=== PATIENT | female | born 1965 | race Caucasian/White ===

== ENCOUNTER 2019-02-04 00:12 | Emergency (ER) | payer BC, SELFPAY ==
[2019-02-04 00:26] VITALS: BP 160/90; PULSE 84
[2019-02-04] MEDS ORDERED: LORazepam 2 MG/ML SDV IVPUSH STA (03:30)
[2019-02-04] MEDS ORDERED: Sodium Chloride 0.9% 1,000 ML ONE (03:37)
--- NOTE | 2019-02-04 03:40 | EDM.PDOC ---
ED HPI GENERAL MEDICAL PROBLEM - General Chief Complaint: Cardiovascular Problem Stated Complaint: NUMB ARMS THROAT FEELS LIKE IT IS CLOSING Time Seen by Provider: 02/04/19 03:18 Source of Information: Reports: Patient, Family (, Son) History Limitations: Reports: No Limitations - History of Present Illness INITIAL COMMENTS - FREE TEXT/NARRATIVE: Mrs. Interiano is a pleasant 53-year-old woman with a past medical history significant for SVT, cervical disc disease, and a small left cerebral aneurysm, who states that she developed the sensation of her heart racing around 05:00 this morning. She then developed a dry mouth and throat tightness around 15:00 this afternoon, and lightheadedness, bilateral hand and bilateral lower extremity tingling and electricity sensation around 23:30 to midnight tonight. She states that she feels dyspneic, and that she cannot walk due to the sensation in her lower extremities. She denies having chest discomfort or abdominal pain. She states that she has had dizziness in the past when she had SVT, but no prior similar constellation of symptoms. Both the patient and her emphasized that the patient is under significant increased stress with decreased sleep for the past week. Due to a severe pediatric trauma, it took me some time to get in to see the patient, but during that time, I was notified numerous times that the patient was yelling and screaming that she thought her throat was closing, and that she thought she was having an allergic reaction. The patient reported to her nurse that she had taken meclizine and Benadryl prior to coming to the ED. The nurse reported to me, however, that the patient's throat was wide open, and that her oxygen saturation was 100% on room air. The patient was notified countless times of the trauma situation, to no avail. When I did evaluate the patient, obtaining a history from her was quite difficult, as the patient appeared to be extremely anxious, and was reluctant to answer questions, preferring to defer answers to her . The patient does not have a PCP. Her Maintenance Of Way Superintendent is Robina Jones. - Related Data Allergies Allergy/AdvReac Type Severity Reaction Status Date / Time No Known Allergies Allergy Verified 01/24/18 16:11 Home Meds: Home Meds Acyclovir 800 mg PO BID PRN 01/24/18 [History] Albuterol [Proventil HFA] 1 puff INH Q4H PRN 01/24/18 [History] Aspirin [Ecotrin EC] 81 mg PO DAILY 01/24/18 [History] Cetirizine [ZyrTEC] 10 mg PO DAILY 01/24/18 [History] Fluticasone/Vilanterol [Breo Ellipta 100-25 MCG Inhalation Kit] 1 puff INH DAILY 01/24/18 [History] Pseudoephedrine HCl [Sudafed] 30 mg PO ASDIRECTED PRN 01/24/18 [History] Thyroid,Pork [Nature-Throid] 0.5 tab PO DAILY 01/24/18 [History] Past Medical History HEENT History: Reports: Allergic Rhinitis Cardiovascular History: Reports: Aneurysm (left cerebral), Arrhythmia (SVT) Gastrointestinal History: Reports: Colon Polyp, PUD Genitourinary History: Reports: Urinary Incontinence (stress incontinence) Musculoskeletal History: Reports: Arthritis, Neck Pain, Chronic (cervical disc disease) Endocrine/Metabolic History: Reports: Hypothyroidism Oncologic (Cancer) History: Reports: Basal Cell Carcinoma (right bartholomew, excised) - Past Surgical History HEENT Surgical History: Reports: LASIK, Oral Surgery (wisdom teeth extraction) GI Surgical History: Reports: Colonoscopy (x 3 or 4), EGD (x 1) Female Surgical History: Reports: D&C (x 1), Tubal Ligation Musculoskeletal Surgical History: Reports: Arthroscopic Knee (right) Oncologic Surgical History: Reports: Other (See Below) (Excision of BCC off right bartholomew) Social & Family History - Tobacco Use Smoking Status *Q: Former Smoker Years of Tobacco use: 15 Packs/Tins Daily: 1 Month/Year Tobacco Last Used: Quit 2000 - Caffeine Use Caffeine Use: Reports: Coffee - Alcohol Use Alcohol Use History: Yes Alcohol Use Frequency: Rarely - Recreational Drug Use Recreational Drug Use: No - Living Situation & Occupation Living situation: Reports: , with Spouse, with Family (Son) Occupation: Employed (Paraprofessional) ED ROS GENERAL - Review of Systems Review Of Systems: ROS reveals no pertinent complaints other than HPI. ED EXAM, GENERAL - Physical Exam Exam: See Below Exam Limited By: No Limitations General Appearance: Anxious, Thin Eye Exam: Bilateral Eye: EOMI, Normal Inspection, PERRL Ears: Normal External Exam, Normal Canal, Hearing Grossly Normal, Normal TMs Nose: Normal Inspection, Normal Mucosa, No Blood Throat/Mouth: Normal Inspection, Normal Lips, Normal Teeth, Normal Gums, Normal Oropharynx, Normal Voice, No Airway Compromise Head: Atraumatic, Normocephalic Neck: Normal Inspection, Supple, Non-Tender, Full Range of Motion. No: Lymphadenopathy (L), Lymphadenopathy (R) Respiratory/Chest: No Respiratory Distress, Lungs Clear, Normal Breath Sounds, No Accessory Muscle Use Cardiovascular: Normal Peripheral Pulses, Regular Rate, Rhythm, No Gallop, No JVD, No Murmur, No Rub Peripheral Pulses: 4+: Radial (L), Radial (R) GI/Abdominal: Normal Bowel Sounds, Soft, Non-Tender, No Organomegaly, No Distention, No Abnormal Bruit, No Mass (Female) Exam: Deferred Rectal (Female) Exam: Deferred Back Exam: Normal Inspection, Full Range of Motion, NT Extremities: Normal Inspection, Normal Range of Motion, No Pedal Edema, Normal Capillary Refill Neurological: Alert, Oriented, CN II-XII Intact, Normal Cognition, No Motor/ Sensory Deficits Psychiatric: Anxious Skin Exam: Warm, Dry, Intact, Normal Color, No Rash EKG INTERPRETATION EKG Date: 02/04/19 Time: 00:22 Rhythm: NSR (with frequent PACs and compensatory pauses) Rate (Beats/Min): 93 [place]: Normal P-Wave: Present QRS: Normal ST-T: Normal QT: Normal Comparison: NA - No Prior EKG Course - Vital Signs Last Recorded V/S: Last Vital Signs Temp 36.6 C 02/04/19 00:23 Pulse 84 02/04/19 00:23 Resp 16 02/04/19 00:23 BP 160/90 H 02/04/19 00:23 Pulse Ox 100 02/04/19 00:23 Orthostatic Blood Pressure [ 122/88 Standing] Orthostatic Blood Pressure [ 129/79 Supine] - Orders/Labs/Meds Orders: Active Orders 24 hr Category Date Time Status Orthostatic Vital Signs [RC] STAT Care 02/04/19 03:21 Active Labs: Laboratory Tests 02/04/19 02/04/19 02/04/19 Range/Units 00:36 00:36 00:36 WBC 10.62 H (3.98-10.04) K/mm3 RBC 4.68 (3.98-5.22) M/mm3 Hgb 14.2 (11.2-15.7) gm/dl Hct 40.6 (34.1-44.9) % MCV 86.8 D (79.4-94.8) fl MCH 30.3 (25.6-32.2) pg MCHC 35.0 (32.2-35.5) g/dl RDW Std Deviation 41.0 (36.4-46.3) fL Plt Count 307 (182-369) K/mm3 MPV 10.7 (9.4-12.3) fl Neutrophils % (Manual) 54 (40-60) % Band Neutrophils % 3 (0-10) % Lymphocytes % (Manual) 30 (20-40) % Atypical Lymphs % 0 % Monocytes % (Manual) 13 H (2-10) % Eosinophils % (Manual) 0 L (0.7-5.8) % Basophils % (Manual) 0 L (0.1-1.2) Platelet Estimate Adequate Plt Morphology Comment Normal RBC Morph Comment Normal D-Dimer, Quantitative 0.25 (0.19-0.50) mg/L Puncture Site ABG pH (7.35-7.45) ABG pCO2 (35.0-45.0) mmHg ABG pO2 (80.0-100.0) mmHg ABG HCO3 (22.0-26.0) meq/L ABG O2 Saturation (96.0-97.0) % ABG Base Excess (-2-2.0) A-a Gradient mmHg O2 Delivery Device FiO2 (21.00-100.00) % Sodium 134 L (136-145) mEq/L Potassium 2.9 L D (3.5-5.1) mEq/L Chloride 97 L (98-107) mEq/L Carbon Dioxide 22 (21-32) mEq/L Anion Gap 17.9 H (5-15) BUN 14 (7-18) mg/dL Creatinine 0.8 (0.55-1.02) mg/dL Est Cr Clr Drug Dosing 3.13 mL/min Estimated GFR (MDRD) > 60 (>60) mL/min BUN/Creatinine Ratio 17.5 (14-18) Glucose 124 H (74-106) mg/dL Calcium 10.2 H (8.5-10.1) mg/dL Magnesium 1.8 (1.8-2.4) mg/dl Total Bilirubin 0.6 (0.2-1.0) mg/dL AST 31 (15-37) U/L ALT 33 (14-59) U/L Alkaline Phosphatase 81 (46-116) U/L Troponin I < 0.017 (0.00-0.056) ng/mL NT-Pro-B Natriuret Pep (0-125) pg/mL Total Protein 8.1 (6.4-8.2) g/dl Albumin 4.5 (3.4-5.0) g/dl Globulin 3.6 gm/dL Albumin/Globulin Ratio 1.3 (1-2) TSH 3rd Generation 4.342 H (0.358-3.74) uIU/mL Urine Color (Yellow) Urine Appearance (Clear) Urine pH (5.0-8.0) Ur Specific [place] (1.005-1.030) Urine Protein (Negative) Urine Glucose (UA) (Negative) Urine Ketones (Negative) Urine Occult Blood (Negative) Urine Nitrite (Negative) Urine Bilirubin (Negative) Urine Urobilinogen (0.2-1.0) Ur Leukocyte Esterase (Negative) Urine RBC (0-5) /hpf Urine WBC (0-5) /hpf Ur Squamous Epith Cells (0-5) /hpf Urine Bacteria (FEW) /hpf Urine Mucus (FEW) /hpf 02/04/19 02/04/19 02/04/19 Range/Units 01:50 03:45 04:05 WBC (3.98-10.04) K/mm3 RBC (3.98-5.22) M/mm3 Hgb (11.2-15.7) gm/dl Hct (34.1-44.9) % MCV (79.4-94.8) fl MCH (25.6-32.2) pg MCHC (32.2-35.5) g/dl RDW Std Deviation (36.4-46.3) fL Plt Count (182-369) K/mm3 MPV (9.4-12.3) fl Neutrophils % (Manual) (40-60) % Band Neutrophils % (0-10) % Lymphocytes % (Manual) (20-40) % Atypical Lymphs % % Monocytes % (Manual) (2-10) % Eosinophils % (Manual) (0.7-5.8) % Basophils % (Manual) (0.1-1.2) Platelet Estimate Plt Morphology Comment RBC Morph Comment D-Dimer, Quantitative (0.19-0.50) mg/L Puncture Site Lt brachial ABG pH 7.49 H (7.35-7.45) ABG pCO2 26.9 L (35.0-45.0) mmHg ABG pO2 110.0 H (80.0-100.0) mmHg ABG HCO3 20.1 L (22.0-26.0) meq/L ABG O2 Saturation 98.4 H (96.0-97.0) % ABG Base Excess -1.7 (-2-2.0) A-a Gradient 6 mmHg O2 Delivery Device Room air FiO2 21.00 (21.00-100.00) % Sodium (136-145) mEq/L Potassium (3.5-5.1) mEq/L Chloride (98-107) mEq/L Carbon Dioxide (21-32) mEq/L Anion Gap (5-15) BUN (7-18) mg/dL Creatinine (0.55-1.02) mg/dL Est Cr Clr Drug Dosing mL/min Estimated GFR (MDRD) (>60) mL/min BUN/Creatinine Ratio (14-18) Glucose (74-106) mg/dL Calcium (8.5-10.1) mg/dL Magnesium (1.8-2.4) mg/dl Total Bilirubin (0.2-1.0) mg/dL AST (15-37) U/L ALT (14-59) U/L Alkaline Phosphatase (46-116) U/L Troponin I (0.00-0.056) ng/mL NT-Pro-B Natriuret Pep 275 H (0-125) pg/mL Total Protein (6.4-8.2) g/dl Albumin (3.4-5.0) g/dl Globulin gm/dL Albumin/Globulin Ratio (1-2) TSH 3rd Generation (0.358-3.74) uIU/mL Urine Color Light yellow (Yellow) Urine Appearance Clear (Clear) Urine pH 8.0 (5.0-8.0) Ur Specific [place] 1.015 (1.005-1.030) Urine Protein Negative (Negative) Urine Glucose (UA) Negative (Negative) Urine Ketones Trace H (Negative) Urine Occult Blood Negative (Negative) Urine Nitrite Negative (Negative) Urine Bilirubin Negative (Negative) Urine Urobilinogen 0.2 (0.2-1.0) Ur Leukocyte Esterase Negative (Negative) Urine RBC Not seen (0-5) /hpf Urine WBC Not seen (0-5) /hpf Ur Squamous Epith Cells 0-5 (0-5) /hpf Urine Bacteria Rare (FEW) /hpf Urine Mucus Rare (FEW) /hpf Meds: Medications Discontinued Medications Generic Name Dose Route Start Last Admin Trade Name Jack PRN Reason Stop Dose Admin Sodium Chloride 1,000 mls @ 150 mls/hr 02/04/19 03:45 02/04/19 05:00 Normal Saline IV 999 mls/hr ASDIRECTED AMANDA Infusion Sodium Chloride Confirm 02/04/19 03:37 02/04/19 03:41 Normal Saline Administered 02/04/19 03:38 Not Given Dose 1,000 mls @ as directed .ROUTE .STK-MED ONE Lorazepam 1 mg 02/04/19 03:30 02/04/19 03:40 Ativan IVPUSH 02/04/19 03:31 1 mg ONETIME STA Administration Potassium Chloride 40 meq 02/04/19 04:08 02/04/19 04:16 Klor-Con M20 PO 02/04/19 04:09 40 meq ONETIME ONE Administration - Re-Assessments/Exams Free Text/Narrative Re-Assessment/Exam: 02/04/19 03:36 The patient appears to be suffering from anxiety and hyperventilation - a panic attack. I have ordered an ABG to confirm hyperventilation, along with a workup to rule out physiologic causes for hyperventilation other than anxiety. Once the ABG has been drawn, the patient will receive Ativan and IV fluid. 02/04/19 04:11 2-view chest radiograph reviewed. The cardiac silhouette is within normal limits. No pulmonary vascular congestion. No pleural effusions. No focal infiltrate. No pneumothorax. There is mild hyperinflation and bilateral diaphragmatic flattening, consistent with COPD. Formal read per the Radiologist pending. The patient's potassium returned depressed at 2.9. I ordered 40 mEq of oral potassium. 02/04/19 05:14 The patient's CBC is remarkable for a WBC count elevated at 10.62, but with only 3% bandemia, and is otherwise unremarkable. Her CMP is remarkable for a sodium slightly depressed at 234, potassium depressed at 2.9, chloride depressed at 97, and blood glucose mildly elevated at 124. The remainder of her CMP is unremarkable. Her magnesium level is within normal limits at 1.8. Her troponin is undetectably low. Her D-dimer is within normal limits at 0.25. Her BNP is slightly elevated at 275. Her TSH is elevated at 4.342. Her ABG represents an acute respiratory alkalosis. Her urinalysis is unremarkable. The patient is not quite orthostatic, but is close, therefore I have asked the patient's nurse to bolus the remaining IV fluid. 02/04/19 05:34 Test results discussed with the patient and her son. The patient's has got home. Following IV Ativan, the patient now looks and feels substantially better - a different person. I explained to the patient that we suspected that she was hyperventilating based on her symptoms and an oxygen saturation of 100%, but that the ABG confirmed it. I explained that the other tests that I ordered were to evaluate for physiologic causes of hyperventilation, such as DKA, uremia, hypocalcemia, hypoglycemia, hyperthyroidism, liver failure, severe anemia, sepsis, acute coronary event, pneumothorax, pneumonia, dysrhythmia, pulmonary embolus, and CHF. I explained that all of these were negative, therefore, by a process of elimination, the patient's hyperventilation is most likely do to anxiety. The patient agreed that that was the most likely cause. I explained that since this was a one-time event, no treatment is necessary, and that I would not be prescribing her any medications, however, if her symptoms persist or recur, then she should seek long-term treatment. For that, I will refer her to Dr. Rod. Departure - Departure Time of Disposition: 05:37 Disposition: Home, Self-Care 01 Condition: Good Clinical Impression: Hyperventilation syndrome Instructions: Hyperventilation Referrals: Pricila Rod MD [Physician] - Forms: ED Department Discharge Additional Instructions: You were seen in the emergency room for palpitations, upper and lower extremity hand tingling and electricity sensation, lightheadedness, a dry mouth, throat tightness, shortness of breath, and inability to walk. Workup in the ER included blood work, an arterial blood gas, a urinalysis, a chest x-ray, positional blood pressure checks, and an ECG. Your ABG confirmed that your hyperventilating. You were also found to have low potassium, likely as a result of hyperventilation, and your TSH was high, consistent with hypothyroidism. The remainder of your workup was unremarkable. As explained, hyperventilation is usually caused by anxiety, although it can be caused by a variety of medical conditions including diabetic ketoacidosis, uremia, hypocalcemia, hypoglycemia, hyperthyroidism, liver failure, severe anemia, sepsis, and acute coronary event, a pneumothorax, pneumonia, dysrhythmias, pulmonary embolus, or congestive heart failure. All of those were ruled out. By a process of elimination, your hyperventilation was most likely do to anxiety. Since this is a new event for you, no treatment is necessary, however, if your symptoms persist or recur, we recommend that you follow-up with Dr. Pricila Rod as a PCP to discuss long-term treatment options. If any other problems, please do not hesitate to return to the ER. - My Orders Last 24 Hours: My Active Orders 02/04/19 03:21 Orthostatic Vital Signs [RC] STAT - Assessment/Plan Last 24 Hours: My Active Orders 02/04/19 03:21 Orthostatic Vital Signs [RC] STAT
[2019-02-04] MEDS ORDERED: Sodium Chloride 0.9% 1,000 ML IV SCH (03:45)
[2019-02-04] MEDS ORDERED: Potassium Chloride 20 MEQ Tab.ER PO ONE (04:08)
--- NOTE | 2019-02-04 06:53 | CR ---
Chest: Two views of the chest are obtained. Comparison: No prior chest imaging. Heart size and mediastinum are normal. Lung markings slightly increased. Lungs otherwise are clear. Bony structures appear within normal limits for the patient's age. Impression: 1. Increased lung markings. Uncertain if this is chronic or represents acute bronchitis as no previous study is available to determine stability. 2. No additional abnormality is appreciated on two-view chest x-ray. Diagnostic code #3
== END 2019-02-04 06:20 | disposition home or self-care (01) ==
LOC: JD.ED 00:12
DX: F45.8 Other somatoform disorders (principal); E03.9 Hypothyroidism, unspecified; Z79.890 Hormone replacement therapy; Z85.89 Personal history of malignant neoplasm of other organs and systems; Z87.891 Personal history of nicotine dependence
CPT/HCPCS: 36415; 36600; 71046; 80053; 81001; 82803; 83735; 83880; 84443; 84484; 85007; 85027; 85379; 93005; 96361; 96374; 99285; A9270; J2060; J7040

== ENCOUNTER 2020-08-31 17:18 | Emergency (ER) | payer BC ==
[2020-08-31 17:29] VITALS: BP 118/84; PULSE 101
[2020-08-31] MEDS ORDERED: Lidocaine 1% 10 ML MDV INJECT ONE (17:54)
[2020-08-31] MEDS ORDERED: Diphtheria,Pertussis(Acell),Tetanus Vaccine 0.5 ML Syringe IM ONE (17:54)
--- NOTE | 2020-08-31 18:48 | EDM.PDOC ---
ED HPI GENERAL MEDICAL PROBLEM - General Chief Complaint: Laceration Stated Complaint: LT ARM LAC Time Seen by Provider: 08/31/20 17:41 Source of Information: Reports: Patient, RN Notes Reviewed History Limitations: Reports: No Limitations - History of Present Illness INITIAL COMMENTS - FREE TEXT/NARRATIVE: Patient is a 54-year-old female presenting to the emergency department with complaints of laceration to her left inner elbow. She reports she was standing on a lawn chair when it fell. She hit her arm on the opposite arm of the lawn chair. Reports some mild pain in her elbow. Last tetanus vaccination was approximately 10 years ago. Left Arm Pain Score (Numeric/FACES): 4 - Related Data Allergies Allergy/AdvReac Type Severity Reaction Status Date / Time No Known Allergies Allergy Verified 08/31/20 17:29 Home Meds: Home Meds Albuterol [Proventil HFA] 1 puff INH Q4H PRN 01/24/18 [History] Aspirin [Ecotrin EC] 81 mg PO DAILY 01/24/18 [History] Cetirizine [ZyrTEC] 10 mg PO DAILY 01/24/18 [History] Thyroid,Pork [Nature-Throid] 0.5 tab PO DAILY 01/24/18 [History] Past Medical History HEENT History: Reports: Allergic Rhinitis Cardiovascular History: Reports: Aneurysm, Arrhythmia Respiratory History: Reports: Asthma, Other (See Below) Other Respiratory History: bronchitits, cough, asthma Gastrointestinal History: Reports: Colon Polyp, PUD Other Gastrointestinal History: gastric ulcer Genitourinary History: Reports: Urinary Incontinence Other Genitourinary History: UTI, vaginal discharge, dysuria, yeast infection [employer]OC[employer] History: Reports: None Musculoskeletal History: Reports: Arthritis, Neck Pain, Chronic Other Musculoskeletal History: tenosynovitis Neurological History: Reports: Migraines, Other (See Below) Other Neuro History: anterior cerebral aneursym, dizziness Psychiatric History: Reports: None Endocrine/Metabolic History: Reports: Hypothyroidism Hematologic History: Reports: None Immunologic History: Reports: None Oncologic (Cancer) History: Reports: Basal Cell Carcinoma Dermatologic History: Reports: Other (See Below) Other Dermatologic History: cold sores - Past Surgical History HEENT Surgical History: Reports: LASIK, Oral Surgery GI Surgical History: Reports: Colonoscopy, EGD Female Surgical History: Reports: D&C, Tubal Ligation Musculoskeletal Surgical History: Reports: Arthroscopic Knee Oncologic Surgical History: Reports: Other (See Below) Social & Family History - Tobacco Use Tobacco Use Status *Q: Never Tobacco User Second Hand Smoke Exposure: No - Caffeine Use Caffeine Use: Reports: Coffee - Recreational Drug Use Recreational Drug Use: No - Living Situation & Occupation Living situation: Reports: , with Spouse, with Family (Son) Occupation: Employed (Paraprofessional) ED ROS GENERAL - Review of Systems Review Of Systems: Comprehensive ROS is negative, except as noted in HPI. ED EXAM, SKIN/RASH Exam: See Below Exam Limited By: No Limitations General Appearance: Alert, WD/WN, No Apparent Distress Respiratory/Chest: No Respiratory Distress, Lungs Clear, Normal Breath Sounds, No Accessory Muscle Use, Chest Non-Tender Cardiovascular: Normal Peripheral Pulses, Regular Rate, Rhythm, No Edema, No Gallop, No JVD, No Murmur, No Rub Extremities: Other (3.5 cm gaping laceration with a 2 cm superficial area distally. Total laceration length 5.5 cm. No ecchymosis or obvious deformity of the elbow. Patient does have full range of motion however states it is slightly uncomfortable.) Neurological: Alert, Oriented, CN II-XII Intact, Normal Cognition, Normal Gait, Normal Reflexes, No Motor/Sensory Deficits Psychiatric: Normal Affect, Normal Mood ED SKIN PROCEDURES - Laceration/Wound Repair Left Medial Elbow Appearance: Subcutaneous, Other (3.5 cm gaping subcutaneous laceration with 2 cm superficial laceration. The total laceration length is 5.5 cm) Distal NVT: Neuro & Vascular Intact Anesthetic Type: Local Local Anesthesia - Lidocaine (Xylocaine): 1% Plain Local Anesthetic Volume: 2cc Skin Prep: Chlorhexidine (Hibiciens), Providone-Iodine (Betadine), Saline, Sterile Drape Saline Irrigation (cc's): 100 Exploration/Debridement/Repair: Wound Explored, No Foreign Material Found Closed with: Sutures, Steri-Strips Lac/Wound length In cm: 5.5 (3.5 cm subcutaneous gaping with 2 cm superficial distally) Suture Size: 4-0 # of Sutures: 8 (8 sutures for closure of the 3.5 cm gaping laceration. 3 Steri-Strips were applied to the 2 cm superficial end of the laceration.) Suture Type: Nylon Sterile Dressing Applied: Nurse Tetanus Status Addressed: Yes Complications: No Course - Vital Signs Last Recorded V/S: Last Vital Signs Temp 98 F 08/31/20 17:26 Pulse 101 H 08/31/20 17:26 Resp 16 08/31/20 17:26 BP 118/84 08/31/20 17:26 Pulse Ox 96 08/31/20 17:26 - Orders/Labs/Meds Meds: Medications Discontinued Medications Generic Name Dose Route Start Last Admin Trade Name Jack PRN Reason Stop Dose Admin Diphtheria/Tetanus/Acell Pertussis 0.5 ml 08/31/20 17:54 08/31/20 18:06 Diphtheria,Pertussis(Acell),Tetanus Vaccine 0.5 Ml Syringe IM 08/31/20 17:55 0.5 ml .ONCE ONE Administration Lidocaine HCl 10 ml 08/31/20 17:54 08/31/20 18:06 Lidocaine 1% 10 Ml Mdv INJECT 08/31/20 17:55 10 ml ONETIME ONE Administration - Re-Assessments/Exams Free Text/Narrative Re-Assessment/Exam: Patient is a 54-year-old female presenting to the emergency department complaints of laceration to her left inner elbow after falling off a 1 chair. She has a 5.5 cm total laceration to the inner aspect of the elbow with 2 cm of being superficial. I have ordered x-ray of the left elbow as well as Tdap and lidocaine in preparation for sutures. 08/31/20 18:44 Elbow x-ray shows no bony abnormalities. Laceration was closed with sutures and Steri-Strips. See procedure notes for closure. Discharge instructions as documented. Departure - Departure Time of Disposition: 18:47 Disposition: Home, Self-Care 01 Condition: Good Clinical Impression: Laceration - Discharge Information *PRESCRIPTION DRUG MONITORING PROGRAM REVIEWED*: No *COPY OF PRESCRIPTION DRUG MONITORING REPORT IN PATIENT ALBERTA: No Instructions: Laceration Care, Adult Referrals: Robina Jones MD [Primary Care Provider] - Forms: ED Department Discharge Additional Instructions: You were seen in the emergency department today for a laceration to your left inner arm. The wound was cleansed and closed with 8 sutures and 3 Steri-Strips. The sutures should stay intact for 10 days. After that time they may be removed in the clinic by a nurse. The Steri-Strips will fall off over the course of the next few days. Do not pull them off. Keep the wound clean and dry. Wash with normal soap and water twice daily. Do not submerge the wound in water. Watch for signs of infection including increased redness, swelling, or purulent drainage. If these should occur, you should be seen either in the clinic or in the emergency department as antibiotic treatment may be needed. Yo ur tetanus vaccination was updated today so you are current for the next 10 years. Return to the ER as needed. Sepsis Event Note (ED) - Evaluation Sepsis Screening Result: No Definite Risk
--- NOTE | 2020-08-31 19:08 | CR ---
Left elbow: 4 views of the left elbow were obtained. Comparison: No previous elbow study is available. No joint effusion is seen. Joint spaces are preserved. No acute fracture, dislocation or other bony abnormality is appreciated. Impression: 1. Nothing acute is seen on left elbow study. Diagnostic code #1
== END 2020-08-31 19:00 | disposition home or self-care (01) ==
LOC: JD.ED 17:18
DX: S51.012A Laceration without foreign body of left elbow, initial encounter (principal); Z23 Encounter for immunization; W20.8XXA Other cause of strike by thrown, projected or falling object, initial encounter
CPT/HCPCS: 12002; 73080-26-LT; 73080-LT; 90471; 90715; 99282; 99283-25